=== PATIENT | female | born 1955 | race Caucasian/White ===

== ENCOUNTER 2019-03-09 10:09 | Emergency (ER) | payer BC ==
--- NOTE | 2019-03-09 11:34 | RAD REPORT ---
EXAM DESCRIPTION: RAD - Elbow Left 3 View - 03/09/2019 11:20 am CLINICAL HISTORY: PAIN History of fall with left-sided pain COMPARISON: No comparisons FINDINGS: No acute fracture or subluxation is evident.
--- NOTE | 2019-03-09 11:35 | RAD REPORT ---
EXAM DESCRIPTION: RAD - Shoulder Left 2 View - 03/09/2019 11:19 am CLINICAL HISTORY: PAIN Fall, left shoulder pain COMPARISON: No comparisons FINDINGS: No acute fracture or dislocation is evident. No aggressive marrow lesion.
--- NOTE | 2019-03-09 16:28 | EDPHYS ---
Physician Documentation [facility] Name: Reena Romo Age: 63 yrs Sex: Female : 1955 Arrival Date: 03/09/2019 Time: 10:12 Bed 24 Private MD: ED Physician Prashant John HPI: 03/09 12:05 This 63 yrs old Female presents to ER via Ambulatory with complaints of Arm pm1 Pain. 12:05 The patient or guardian complains of pain. The complaints affect the anterior aspect of pm1 left shoulder. Context: The problem was sustained at home, resulted from Fall on straightened left arm while trying to sit down. Onset: The symptoms/episode began/occurred 1 week(s) ago. Treatment prior to arrival includes: no previous treatment. Modifying factors: The symptoms are alleviated by remaining still, the symptoms are aggravated by movement. Associated signs and symptoms: Pertinent negatives: deformity, numbness, tingling. Severity of symptoms: in the emergency department the symptoms are actually worse. The patient has been recently seen by a physician: the patient's primary care provider, with similar presenting complaints. Historical: - Allergies: 10:53 No Known Allergies; aj1 - PMHx: 10:53 None; aj1 - Immunization history:: Flu vaccine status is unknown. - Ebola Screening: : Patient denies travel to an Ebola-affected area in the 21 days before illness onset. - Social history:: Smoking status: unknown. ROS: 12:05 Constitutional: Negative for fever, chills, and weight loss, Eyes: Negative for injury, pm1 pain, redness, and discharge, ENT: Negative for injury, pain, and discharge, Neck: Negative for injury, pain, and swelling, Cardiovascular: Negative for chest pain, palpitations, and edema, Respiratory: Negative for shortness of breath, cough, wheezing, and pleuritic chest pain, Abdomen/GI: Negative for abdominal pain, nausea, vomiting, diarrhea, and constipation, Back: Negative for injury and pain. 12:05 Skin: Negative for injury, rash, and discoloration, Neuro: Negative for headache, weakness, numbness, tingling, and seizure. 12:05 MS/extremity: Positive for pain, of the anterior aspect of left shoulder, Negative for deformity. Exam: 12:05 Constitutional: This is a well developed, well nourished patient who is awake, alert, pm1 and in no acute distress. Head/Face: Normocephalic, atraumatic. Neck: Trachea midline, no thyromegaly or masses palpated, and no cervical lymphadenopathy. Supple, full range of motion without nuchal rigidity, or vertebral point tenderness. No Meningismus. Chest/axilla: Normal chest wall appearance and motion. Nontender with no deformity. No lesions are appreciated. Cardiovascular: Regular rate and rhythm with a normal S1 and S2. No gallops, murmurs, or rubs. Normal PMI, no JVD. No pulse deficits. Respiratory: Lungs have equal breath sounds bilaterally, clear to auscultation and percussion. No rales, rhonchi or wheezes noted. No increased work of breathing, no retractions or nasal flaring. Abdomen/GI: Soft, non-tender, with normal bowel sounds. No distension or tympany. No guarding or rebound. No evidence of tenderness throughout. Back: No spinal tenderness. No costovertebral tenderness. Full range of motion. Skin: Warm, dry with normal turgor. Normal color with no rashes, no lesions, and no evidence of cellulitis. 12:05 Musculoskeletal/extremity: Extremities: grossly normal except: noted in the anterior aspect of left shoulder: tenderness, There is no evidence of deformity. Vital Signs: 10:53 BP 146 / 106; Pulse 92; Resp 18; Temp 98.1(TE); Pulse Ox 98% on R/A; Weight 57.15 kg aj1 (R); Height 5 ft. 2 in. (157.48 cm) (R); Pain 10/10; 12:46 BP 135 / 78; Pulse 80; Resp 18; Temp 98; Pulse Ox 100% on R/A; Pain 5/10; mg2 10:53 Body Mass Index 23.05 (57.15 kg, 157.48 cm) aj1 MDM: 12:03 Patient medically screened. pm1 12:33 Data reviewed: vital signs. Data interpreted: Pulse oximetry: on room air is 98 %. pm1 Interpretation: normal. Counseling: I had a detailed discussion with the patient and/or guardian regarding: the historical points, exam findings, and any diagnostic results supporting the discharge/admit diagnosis, radiology results, the need for outpatient follow up, for definitive care, a orthopedic surgeon, to return to the emergency department if symptoms worsen or persist or if there are any questions or concerns that arise at home. 03/09 10:55 Order name: Shoulder Left (2 View) XRAY [facility] 03/09 10:55 Order name: Elbow Left 3 View XRAY [facility] 03/09 12:05 Order name: Sling; Complete Time: 12:21 pm1 Administered Medications: No medications were administered Disposition: 14:53 Co-signature as Attending Physician, Prashant John MD I agree with the assessment and kdr plan of care. Disposition: 03/09/19 12:35 Discharged to Home. Impression: Pain in left shoulder. - Condition is Stable. - Discharge Instructions: Rotator Cuff Injury, Shoulder Pain, How to Use a Sling. - Prescriptions for Tylenol- Codeine #3 300-30 mg Oral Tablet - take 2 tablets by ORAL route every 6 hours As needed; 20 tablet. - Medication Reconciliation Form, Thank You Letter, Antibiotic Education, Prescription Opioid Use form. - Follow up: Emergency Department; When: As needed; Reason: Worsening of condition. Follow up: Private Physician; When: 2 - 3 days; Reason: Recheck today's complaints, Continuance of care, Re-evaluation by your physician. - Problem is new. - Symptoms have improved. - Notes: Please follow up with your PCP or orthopedics for additional studies, such as an MRI Signatures: Dispatcher [employer] EDNE Sadie Dimas RN RN aj1 Prashant John MD MD kdr Oz Hooper NP ROBOTIC TECHNICIAN pm1 Klever Ramirez RN RN mg2 Corrections: (The following items were deleted from the chart) 12:47 12:35 03/09/2019 12:35 Discharged to Home. Impression: Pain in left shoulder. Condition mg2 is Stable. Forms are Medication Reconciliation Form, Thank You Letter, Antibiotic Education, Prescription Opioid Use. Follow up: Emergency Department; When: As needed; Reason: Worsening of condition. Follow up: Private Physician; When: 2 - 3 days; Reason: Recheck today's complaints, Continuance of care, Re-evaluation by your physician. Problem is new. Symptoms have improved. pm1
--- NOTE | 2019-03-09 16:28 | ER ---
Nurse's Notes [facility] Name: Reena Romo Age: 63 yrs Sex: Female : 1955 Arrival Date: 03/09/2019 Time: 10:12 Bed 24 Private MD: Diagnosis: Pain in left shoulder Presentation: 03/09 10:49 Presenting complaint: Patient states: "I slipped and fell on my left arm a week ago. It aj1 didn't hurt that bad so I didn't think much of it but I felt it pop. I went to my doctor last Wednesday and he didn't see anything wrong, but the next day the pain became really intense and now I can't lift my arm above my waistline" Reports pain to the left arm that starts in the shoulder and radiates down to her hand. Transition of care: patient was not received from another setting of care. Onset of symptoms was February 2019. Risk Assessment: Do you want to hurt yourself or someone else? Patient reports no desire to harm self or others. Initial Sepsis Screen: Does the patient meet any 2 criteria? No. Patient's initial sepsis screen is negative. Does the patient have a suspected source of infection? No. Patient's initial sepsis screen is negative. Care prior to arrival: None. 10:49 Method Of Arrival: Ambulatory aj1 10:49 Acuity: BELA 4 aj1 Triage Assessment: 10:53 General: Appears in no apparent distress. uncomfortable, Behavior is calm, cooperative, aj1 appropriate for age. Pain: Complains of pain in left arm Pain does not radiate. Pain currently is 10 out of 10 on a pain scale. Neuro: Level of Consciousness is awake, alert, obeys commands. Cardiovascular: Patient's skin is warm and dry. Respiratory: Airway is patent Respiratory effort is even, unlabored, Respiratory pattern is regular, symmetrical. Historical: - Allergies: 10:53 No Known Allergies; aj1 - PMHx: 10:53 None; aj1 - Immunization history:: Flu vaccine status is unknown. - Ebola Screening: : Patient denies travel to an Ebola-affected area in the 21 days before illness onset. - Social history:: Smoking status: unknown. Screenin:46 Abuse screen: Denies threats or abuse. Denies injuries from another. Nutritional mg2 screening: No deficits noted. Tuberculosis screening: No symptoms or risk factors identified. Fall Risk Fall in past 12 months (25 points). Assessment: 12:45 General: Appears in no apparent distress. comfortable, Behavior is calm, cooperative. mg2 Pain: Complains of pain in left arm Pain does not radiate. Pain currently is 5 out of 10 on a pain scale. Quality of pain is described as aching, Pain began suddenly, 1 week ago. Neuro: Level of Consciousness is awake, alert, obeys commands, Oriented to person, place, time, situation. Cardiovascular: Capillary refill < 3 seconds Patient's skin is warm and dry. Respiratory: Airway is patent Respiratory effort is even, unlabored, Respiratory pattern is regular, symmetrical. GI: No signs and/or symptoms were reported involving the gastrointestinal system. : No signs and/or symptoms were reported regarding the genitourinary system. EENT: No signs and/or symptoms were reported regarding the EENT system. Derm: Skin is intact, is healthy with good turgor, Skin is pink, warm \\T\\ dry. normal. Musculoskeletal: Circulation, motion, and sensation intact. Capillary refill < 3 seconds, Reports pain in left arm. Vital Signs: 10:53 BP 146 / 106; Pulse 92; Resp 18; Temp 98.1(TE); Pulse Ox 98% on R/A; Weight 57.15 kg aj1 (R); Height 5 ft. 2 in. (157.48 cm) (R); Pain 10/10; 12:46 BP 135 / 78; Pulse 80; Resp 18; Temp 98; Pulse Ox 100% on R/A; Pain 5/10; mg2 10:53 Body Mass Index 23.05 (57.15 kg, 157.48 cm) aj1 ED Course: 10:12 Patient arrived in ED. as 10:53 Triage completed. aj1 10:53 Arm band placed on Patient placed in waiting room, Patient notified of wait time. aj1 11:16 X-ray completed. Portable x-ray completed in exam room. Patient tolerated procedure sw well. 11:36 Shoulder Left (2 View) XRAY In Process Unspecified. EDMS 11:36 Elbow Left 3 View XRAY In Process Unspecified. EDMS 11:57 Oz Hooper NP is PHCP. pm1 11:57 Prashant John MD is Attending Physician. pm1 12:02 Klever Ramirez, RN is Primary Nurse. mg2 12:20 Sling applied to left arm. lt1 12:46 Patient has correct armband on for positive identification. Pulse ox on. NIBP on. Door mg2 closed. 12:46 No provider procedures requiring assistance completed. Patient did not have IV access mg2 during this emergency room visit. Administered Medications: No medications were administered Outcome: 12:35 Discharge ordered by MD. pm1 12:47 Discharged to home ambulatory. mg2 12:47 Condition: stable 12:47 Discharge instructions given to patient, Instructed on discharge instructions, follow up and referral plans. medication usage, Demonstrated understanding of instructions, follow-up care, medications, Prescriptions given X 1. 12:47 Patient left the ED. mg2 Signatures: Dispatcher [employer] EDMS Sadie Dimas RN RN aj1 Alejandrina Niño Shannon sw Marinas, Patrick, SENSOR SPECIALIST SENSOR SPECIALIST pm1 Klever Ramirez, DAMIEN RN mg2 Steff Soliz lt1
== END 2019-03-09 12:47 | disposition home or self-care (01) ==
LOC: ER 10:09
DX: M25.512 Pain in left shoulder (principal)
CPT/HCPCS: 99284